=== PATIENT | male | born 1960 | race African-American/Black ===

== ENCOUNTER 2017-08-02 21:52 | Emergency (ER) | END 2017-08-03 00:10 | disposition home or self-care (01) ==

== ENCOUNTER 2017-08-04 13:42 | Emergency (ER) | END 2017-08-04 18:27 | disposition home or self-care (01) ==

== ENCOUNTER 2018-01-30 15:33 | Emergency (ER) | END 2018-01-30 21:30 | disposition left against medical advice (07) ==

== ENCOUNTER 2018-10-25 09:04 | Emergency (ER) | payer MEDICAID ==
[~2018-10-25] VITALS: Ht 157.5 cm; Wt 65.0 kg
[~2018-10-25 09:04] MED LIST: METH750T93 PO; NAPR-688 PO; NAPR-985 PO; POLY17PO6 PO; SERT25TA PO; ZIPR20CA24 PO
[2018-10-25 09:08] VITALS: Ht 157.5 cm; Wt 65.0 kg
[2018-10-25] MEDS ORDERED: SOD CHLORIDE 0.9% 1,000 ML IV STA (09:14)
--- NOTE | 2018-10-25 09:25 | ERD ---
ER Documentation Chief Complaint Chief Complaint BIB RA FOR EVAL OF BACK PAIN AND BILAT LEG PAIN. PT ANXIOUS HPI This is a 58-year-old man brought in by EMS for methamphetamine abuse, patient admits to doing drugs and has a long history of methamphetamine abuse. He complains of palpitations and bilateral leg pain, no headache or blurry vision, no slurred speech, no weakness in his arms or legs, no complaints of chest pain or shortness of breath. Patient was transported here agitated by EMS ROS All systems reviewed and are negative except as per history of present illness. Medications Home Meds Active Scripts Naproxen* (Naprosyn*) 500 Mg Tablet, 500 MG PO BID PRN for PAIN AND/OR INFLAMMATION, #30 TAB Prov:BHANU ALLRED MD 10/25/18 Naproxen* (Naproxen*) 500 Mg Tablet, 500 MG PO BID PRN for PAIN, #20 TAB Prov:NICHOLELORIE DO 08/04/17 Ziprasidone* (Geodon*) 20 Mg Capsule, 20 MG PO BID, #14 CAP Prov:LORIE VARELA DO 08/02/17 Sertraline Hcl* (Zoloft*) 25 Mg Tablet, 25 MG PO DAILY, #10 TAB Prov:NICHOLELORIE DO 08/02/17 Discontinued Scripts Methocarbamol* (Robaxin*) 750 Mg Tablet, 750 MG PO Q6H PRN for MUSCLE SPASMS, #20 TAB Prov:NICHOLELORIE 08/04/17 Polyethylene Glycol* (Miralax*) 17 Gm Powd.pack, 17 GM PO DAILY, #7 Prov:NICHOLELORIECARLA MICHAUD 08/02/17 Allergies Allergies: Coded Allergies: aspirin (Verified Allergy, Unknown, 10/25/18) ibuprofen (Verified Allergy, Unknown, 10/25/18) PMhx/Soc Drug abuse, psychiatric illness Hx Miscellaneous Medical Probl: Yes (schizophrenia , bi-polar , chronic back pain ) Hx Alcohol Use: Yes Hx Substance Use: Yes Hx Tobacco Use: Yes FmHx Family History: No diabetes Physical Exam Vitals Vital Signs Date Temp Pulse Resp B/P (MAP) Pulse Ox O2 O2 Flow FiO2 Time Delivery Rate 10/25/18 98.1 110 18 149/99 96 Room Air 13:39 (116) 10/25/18 98.2 135 20 21/103 62 09:08 (76) Physical Exam GENERAL: Well-developed, well-nourished, well-hydrated, agitated, intoxicated NEURO: Alert and oriented 3, cranial nerves II through XII intact bilaterally, pupils equal round reactive to light, no focal deficits or facial asymmetry, sensation intact distally Strength 5/5 in upper and lower extremities bilaterally CARDIAC: Tachycardic and regular, no murmurs rubs or gallops LUNGS: Clear bilaterally no wheezing crackles or stridor SKIN: Warm and dry to touch, no abrasions, contusions, or hematomas, no lacerations, no ecchymosis, no target lesions, and without ulcers EXTREMITIES: No clubbing cyanosis or edema, calves are bilaterally symmetrical, no Homans sign, no popliteal cord sign. Distal pulses equal and bilateral PSYCH: Agitated Result Diagram: 10/25/1895510/25/1856 Results 24 hrs Laboratory Tests Test 10/25/18 09:56 White Blood Count 7.6 10^3/ul Red Blood Count 4.76 10^6/ul Hemoglobin 13.8 g/dl Hematocrit 41.6 % Mean Corpuscular Volume 87.4 fl Mean Corpuscular Hemoglobin 29.0 pg Mean Corpuscular Hemoglobin Concent 33.2 g/dl Red Cell Distribution Width 13.6 % Platelet Count 250 10^3/UL Mean Platelet Volume 9.8 fl Immature Granulocytes % 0.700 % Neutrophils % 87.7 % Lymphocytes % 5.7 % Monocytes % 5.4 % Eosinophils % 0.1 % Basophils % 0.4 % Nucleated Red Blood Cells % 0.0 /100WBC Immature Granulocytes # 0.050 10^3/ul Neutrophils # 6.6 10^3/ul Lymphocytes # 0.4 10^3/ul Monocytes # 0.4 10^3/ul Eosinophils # 0.0 10^3/ul Basophils # 0.0 10^3/ul Nucleated Red Blood Cells # 0.0 10^3/ul Sodium Level 142 mmol/L Potassium Level 4.1 mmol/L Chloride Level 107 mmol/L Carbon Dioxide Level 26 mmol/L Anion Gap 9 Blood Urea Nitrogen 32 mg/dl Creatinine 1.30 mg/dl Est Glomerular Filtrat Rate mL/min > 60 mL/min Glucose Level 131 mg/dl Calcium Level 9.7 mg/dl Total Bilirubin 0.4 mg/dl Direct Bilirubin 0.00 mg/dl Indirect Bilirubin 0.4 mg/dl Aspartate Amino Transf (AST/SGOT) 150 IU/L Alanine Aminotransferase (ALT/SGPT) 66 IU/L Alkaline Phosphatase 106 IU/L Troponin I < 0.012 ng/ml Total Protein 8.2 g/dl Albumin 4.3 g/dl Globulin 3.90 g/dl Albumin/Globulin Ratio 1.10 Lipase 123 U/L Current Medications Medications Dose Sig/Jose Francisco Start Time Status Last (Trade) Ordered Route PRN Stop Time Admin Dose Reason Admin Sodium 1,000 ml @ Q1H STAT 10/25/18 DC 10/25/18 Chloride 1,000 mls/hr IV 09:14 10/25/18 09:45 10:13 Lorazepam 1 mg ONCE ONCE 10/25/18 DC 10/25/18 (Ativan) IV 09:30 10/25/18 09:45 09:31 Procedures/MDM IV line was established patient was placed on bus monitor rhythm strip rev ealed a narrow complex tachycardia at 130 bpm with upright P and T waves. Patient was afebrile I administered 1 L normal saline IV and Ativan 1 mg IV. CBC and electrolytes are normal, liver function tests are normal, troponin was negative. EKG, performed, read by me revealed a sinus tachycardia at 132 bpm, left axis deviation, narrow QRS complex, no concerning ST elevations or depressions noted Differential diagnoses considered, included but not limited to acute coronary syndrome, pulmonary embolism, aortic dissection, abdominal aortic aneurysm, sepsis, stroke, meningitis, encephalitis, pneumonia, appendicitis, cholecystitis, bowel obstruction, pyelonephritis, nephrolithiasis, cystitis, as well as metabolic, hematologic, and electrolyte abnormalities. As well as abscess, cellulitis, fractures, and dislocations. Patient feels much better at this time, and vital signs are normal, symptoms have improved. I did give strict instructions to return to the ED if symptoms continue or worsen, patient will otherwise follow-up with primary care physician. Patient understood instructions and agreed to plan. Disclaimer: Inadvertent spelling and grammatical errors are likely due to EHR/dictation software use and do not reflect on the overall quality of patient care. Also, please note that the electronic time recorded on this note does not necessarily reflect the actual time of the patient encounter. Departure Diagnosis: Primary Impression: Methamphetamine abuse Condition: BHANU Lazo MD Oct 25, 2018 09:25
[2018-10-25] MEDS ORDERED: LORAZEPAM 2 MG INJ IV ONE (09:30)
[2018-10-25 13:39] VITALS: BP 149/99; PULSE 110; RESP 18
== END 2018-10-25 14:52 | disposition home or self-care (01) ==
LOC: E/R 09:04
DX: F15.10 Other stimulant abuse, uncomplicated (principal); Z87.891 Personal history of nicotine dependence
CPT/HCPCS: 80053; 83690; 84484; 85025; 93005; 96374; J2060; J7030; Z7502